=== PATIENT | male | born 1960 | race Caucasian/White ===

== ENCOUNTER 2017-02-02 14:57 | Emergency (ER) | payer BC ==
[~2017-02-02] VITALS: Ht 177.8 cm; Wt 98.2 kg
[~2017-02-02 14:57] MED LIST: CIPRO500 MG PO
[2017-02-02 15:35] LABS: POINT-OF-CARE METER ID UU13113702
[2017-02-02 15:45] LABS: EOSINOPHIL (%) 0.1 % (0-5); HEMATOCRIT 29.5 % (38.0-50.0); IMMATURE GRANULOCYTE (%) 1.3 % (0.0-0.7); IMMATURE GRANULOCYTE COUNT 0.1 K/uL; INSTRUMENT ABS NEUTROPHIL CT 6.1 K/uL; LYMPHOCYTE COUNT 0.6 K/uL (1.0-2.8); MCH 31.7 PG (29.0-34.0); MCHC 33.2 G/DL (30.0-36.0); MCV 95.5 FL (86-99); MEAN PLAT.VOLUME 9.6 uM^3 (9.0-12.4); MONOCYTE (%) 2.5 % (3-12); MONOCYTE COUNT 0.2 K/uL (0-0.8); NEUTROPHIL (%) 87.8 % (45-76); NEUTROPHIL COUNT 6.1 K/uL (1.8-6.4); RBC DIS.WIDTH-CV 13.1 % (11.8-14.6); RBC DIS.WIDTH-SD 45.2 % (39-53); WHITE BLOOD COUNT 6.9 K/uL (4.1-10.2)
[2017-02-02 15:47] LABS: PLATELET COUNT 113 K/uL (156-360); RED BLOOD COUNT 3.09 M/uL (4.00-5.50)
[2017-02-02 15:57] LABS: CHLORIDE 104 mEq/L (99-109)
[2017-02-02 15:58] LABS: SODIUM 135 mEq/L (136-147)
[2017-02-02 15:59] LABS: GLUCOSE 220 mg/dL (70-99)
[2017-02-02 16:01] LABS: ANION GAP 12 MEQ/L (2-14)
[2017-02-02 16:03] LABS: GFR ESTIMATE (CALCULATED) > 59 mL/min/
[2017-02-02 16:04] LABS: UREA NITROGEN (BUN) 21 mg/dL (9-23)
[2017-02-02 16:47] LABS: POINT-OF-CARE METER ID UU13113702
[2017-02-02 18:36] VITALS: BP 124/72
[2017-02-02 18:47] LABS: ADD MIUA? NO; BILIRUBIN NEGATIVE; BLOOD NEGATIVE; COLOR YELLOW ((YELLOW)); GLUCOSE (STRIP) >=500; KETONES NEGATIVE; LEUKOCYTES NEGATIVE; NITRITE NEGATIVE; PROTEIN (STRIP) 30; UROBILINOGEN 0.2 MG/DL (0.2-1.0)
[2017-02-02 18:54] VITALS: BP 128/71
[2017-02-02 19:59] VITALS: BP 138/75
[2017-02-02 20:51] VITALS: BP 112/67
== END 2017-02-02 21:22 | disposition home or self-care (01) ==
LOC: EME 14:57
PROVIDERS: Emergency Medicine
PROC: 30233N1 Transfusion of Nonautologous Red Blood Cells into Peripheral Vein, Percutaneous Approach (ICD-10-PCS; principal; 2017-02-02)
DX: E11.65 Type 2 diabetes mellitus with hyperglycemia (principal); D64.9 Anemia, unspecified; Z98.890 Other specified postprocedural states; R03.1 Nonspecific low blood-pressure reading
CPT/HCPCS: 80048; 81003; 82803; 82948; 85025; 86850; 86900; 86901; 86920; 99281; 99284; J7030; P9016